=== PATIENT | female | born 1990 | race Hispanic/Latino ===

== ENCOUNTER 2021-04-28 11:52 | Emergency (ER) | payer OTHER ==
[~2021-04-28] VITALS: Ht 167.6 cm; Wt 141.1 kg
[2021-04-28 12:18] LABS: HEMATOCRIT 42.4 % (36-48); MEAN CORPUSCULAR HGB CONC 33.5 g/dL (32.0-36.0); MEAN CORPUSCULAR VOLUME 83.6 fL (79-99); RED BLOOD CELL COUNT(AUTO) 5.07 MIL/uL (4.00-5.50); RED CELL DISTRIBUTION WIDTH 12.2 % (11.0-15.5)
[2021-04-28 12:18] LABS: APPEARANCE,URINE Clear (CLEAR); BILIRUBIN,URINE Negative (NEGATIVE); COLOR,URINE Yellow (YELLOW); GLUCOSE, URINE (UA) Negative (NEGATIVE); KETONES,URINE Negative (NEGATIVE); LEUKOCYTE ESTERASE ,URINE Trace (NEGATIVE); NITRATE,URINE Negative (NEGATIVE); OCCULT BLOOD,URINE Negative (NEGATIVE); PROTEIN,URINE Negative (NEGATIVE)
[2021-04-28 12:22] LABS: HCG,QUAL RESULT NEGATIVE (NEGATIVE)
[2021-04-28 12:28] LABS: CREATININE 0.7 mg/dL (0.5-1.5); POTASSIUM 4.7 mmol/L (3.5-5.1)
[2021-04-28 12:33] LABS: ALBUMIN 3.8 g/dL (3.5-5.0); BILIRUBIN,TOTAL 0.4 mg/dL (0.2-1.0)
[2021-04-28 13:19] LABS: BACTERIA,URINE Rare /HPF (None Seen); RBC,URINE 0-1 /HPF (0-1); SQUAMOUS EPITHELIAL CELL,UR Rare /HPF (0-2); WBC,URINE 0-1 /HPF (0-1)
[2021-04-28] MEDS ORDERED: ONDANSETRON 4MG INJ ONE (13:29)
[2021-04-28] MEDS ORDERED: ONDANSETRON 4MG INJ IVP ONE (13:30)
[2021-04-28] MEDS ORDERED: 0.9%NACL 1000ML 1,000 ML IV ONE ×2 (13:30)
[2021-04-28 14:17] VITALS: BP 152/75
[2021-04-28] MEDS ORDERED: ONDA4TAB10 PO (14:23)
[2021-04-28] MEDS ORDERED: HYOS0.124 SL (14:26)
[2021-04-28] MEDS ORDERED: HYOSCYAMINE SULFATE 0.125 MG TAB.SUBL SL SCH (15:15)
== END 2021-04-28 14:38 | disposition home or self-care (01) ==
LOC: EDH 11:52
DX: K52.9 Noninfective gastroenteritis and colitis, unspecified (principal); Z20.822 Contact with and (suspected) exposure to COVID-19; Z79.899 Other long term (current) drug therapy
CPT/HCPCS: 36415; 80053; 81001; 81025; 85027; 87635; 87804 ×2; 96361; 96374; 99283; C9803; J2405; J7030

== ENCOUNTER 2022-12-04 16:43 | Emergency (ER) | payer OTHER ==
[~2022-12-04] VITALS: Ht 167.6 cm; Wt 131.5 kg
[~2022-12-04 16:43] MED LIST: HYOS0.124 SL; ONDA4TAB10 PO
[2022-12-04 18:21] VITALS: O2SAT 98
[2022-12-04 18:22] VITALS: BP 184/94; PULSE 73; RESP 18
[2022-12-04] MEDS ORDERED: KETOROLAC 30MG VIAL (30MG/ML) IM ONE (19:30)
[2022-12-04] MEDS ORDERED: CYCLOBENZAPRINE HCL 10 MG TABLET PO ONE (19:30)
[2022-12-04] MEDS ORDERED: IBUP-2070 PO (20:43)
[2022-12-04] MEDS ORDERED: CYCL10TA16 PO (20:43)
[2022-12-04] MEDS ORDERED: HYDROCODONE/ACETAMINOPHEN 5/325 MG TAB PO ONE (21:00)
== END 2022-12-04 21:05 | disposition home or self-care (01) ==
LOC: EDH 16:43
DX: S46.811A Strain of other muscles, fascia and tendons at shoulder and upper arm level, right arm, initial encounter (principal); S16.1XXA Strain of muscle, fascia and tendon at neck level, initial encounter; Z79.899 Other long term (current) drug therapy; Z98.890 Other specified postprocedural states; X58.XXXA Exposure to other specified factors, initial encounter; Y93.89 Activity, other specified; Y92.89 Other specified places as the place of occurrence of the external cause; Y99.8 Other external cause status
CPT/HCPCS: 99285; 72125; 72128; 96372; J1885